=== PATIENT | male | born 1975 | race Hispanic/Latino ===

== ENCOUNTER 2024-06-03 17:42 | Observation (INO) | payer SELFPAY ==
[~2024-06-03] VITALS: Ht 167.6 cm; Wt 111.1 kg
[2024-06-03 18:19] VITALS: PULSE 67; RESP 15; TEMP 98.4
[2024-06-03 21:00] VITALS: BP 148/87; PULSE 78; RESP 18; TEMP 97.4; O2SAT 100
[2024-06-03] MEDS: AZITHROMYCIN 250 MG TAB PO ONE (21:03)
[2024-06-03 22:41] VITALS: BP 148/87; PULSE 78; RESP 18; TEMP 97.5; O2SAT 100
[2024-06-03] MEDS: Morphine 2mg Syringe 2 MG/ML SYR IV PRN (22:59)
[2024-06-03] MEDS: ONDANSETRON HCL INJ 2MG/ML 2ML 2 MG/ML VIAL IV PRN (22:59)
[2024-06-03 23:51] VITALS: BP 148/87; PULSE 78; RESP 18; TEMP 97.4; O2SAT 100
[2024-06-04] VITALS (8 sets, daily range): BP systolic 110–132; BP diastolic 64–82; PULSE 54–61; RESP 16–18; TEMP 97.3–98.5; O2SAT 98–100
[2024-06-04 07:05] LABS: BASOPHILS # (AUTO) 0.2 (0.0-0.1); BASOPHILS % 1.5 % (0.0-1.0); EOSINOPHILS # (AUTO) 0.7 (0.0-0.4); EOSINOPHILS % 7.1 % (0.0-6.0); HEMATOCRIT 49.1 % (38.2-49.6); HEMOGLOBIN 16.1 g/dL (14.0-18.0); LYMPHOCYTES # (AUTO) 2.6 (1.0-3.2); LYMPHOCYTES % 26.6 % (18.0-39.1); MEAN CORPUSCULAR HEMOGLOBIN 30.7 pg (28-32); MEAN CORPUSCULAR HGB CONC 32.8 g/dL (31-35); MEAN CORPUSCULAR VOLUME 93.5 fL (81-99); MONOCYTES # (AUTO) 0.8 (0.2-0.8); NEUTROPHILS # (AUTO) 5.5 (2.1-6.9); NEUTROPHILS % 56.1 % (38.7-80.0); PLATELET COUNT 275 x10e3/uL (140-360); RED BLOOD COUNT 5.25 x10e6/uL (4.3-5.7); RED CELL DISTRIBUTION WIDTH 13.6 % (11.7-14.4); WHITE BLOOD COUNT 9.88 x10e3/uL (4.8-10.8)
[2024-06-04 07:24] LABS: ANION GAP 13.1 mmol/L (8-16); CALCIUM 9.1 mg/dL (8.4-10.2); CREATININE, SERUM 0.98 mg/dL (0.72-1.25); POTASSIUM 4.1 mmol/L (3.5-5.1)
[2024-06-04] MEDS: SODIUM CHLORIDE 0.9% 1000ML 1,000 ML IV SCH (09:34)
[2024-06-05] MEDS: ACETAMINOPHEN/CODEINE 300MG - 30MG TAB PO PRN (00:20)
[2024-06-05] MEDS: POLYETHYLENE GLYCOL 3350 17 GM PACK PO STA (01:33)
[2024-06-05] MEDS: HYDROCORTISONE ACETATE 25 MG/SUPP.RECT SUPP RC STA ×2 (01:45)
[2024-06-05 04:00] VITALS: BP 124/62; PULSE 88; RESP 12; TEMP 97.9; O2SAT 100
[2024-06-05 05:28] LABS: BASOPHILS # (AUTO) 0.1 (0.0-0.1); BASOPHILS % 1.2 % (0.0-1.0); EOSINOPHILS # (AUTO) 0.7 (0.0-0.4); EOSINOPHILS % 6.8 % (0.0-6.0); HEMATOCRIT 46.7 % (38.2-49.6); HEMOGLOBIN 15.2 g/dL (14.0-18.0); LYMPHOCYTES # (AUTO) 2.9 (1.0-3.2); LYMPHOCYTES % 30.1 % (18.0-39.1); MEAN CORPUSCULAR HEMOGLOBIN 30.4 pg (28-32); MEAN CORPUSCULAR HGB CONC 32.5 g/dL (31-35); MEAN CORPUSCULAR VOLUME 93.4 fL (81-99); MONOCYTES # (AUTO) 0.8 (0.2-0.8); MONOCYTES % 7.9 % (4.4-11.3); NEUTROPHILS # (AUTO) 5.2 (2.1-6.9); NEUTROPHILS % 53.3 % (38.7-80.0); PLATELET COUNT 257 x10e3/uL (140-360); RED CELL DISTRIBUTION WIDTH 13.8 % (11.7-14.4); WHITE BLOOD COUNT 9.76 x10e3/uL (4.8-10.8)
[2024-06-05 05:59] LABS: ANION GAP 11.1 mmol/L (8-16); CALCIUM 8.8 mg/dL (8.4-10.2); CREATININE, SERUM 0.91 mg/dL (0.72-1.25); POTASSIUM 4.1 mmol/L (3.5-5.1)
[2024-06-05 08:16] VITALS: BP 116/78; PULSE 53; RESP 18; TEMP 97.9; O2SAT 100
[2024-06-05] MEDS: POLYETHYLENE GLYCOL 3350 17 GM PACK PO SCH (08:17)
[2024-06-05] MEDS: HYDROCORTISONE ACETATE 25 MG/SUPP.RECT SUPP RC SCH (08:19)
[2024-06-05 08:45] VITALS: BP 116/78; PULSE 53; RESP 18; TEMP 97.9; O2SAT 100
[2024-06-05] MEDS ORDERED: CIPRO500 MG PO (11:21)
[2024-06-05] MEDS ORDERED: FLAGYL375 MG PO (11:22)
[2024-06-05] MEDS ORDERED: MIRALAX17 GM PO ×2 (11:23)
[2024-06-05] MEDS ORDERED: SENOKOT-S TABL1 EACH PO (11:23)
[2024-06-05] MEDS ORDERED: [UNRECOGNIZED DRUG - OTHER] RC (11:31)
== END 2024-06-05 11:57 | disposition home or self-care (01) ==
LOC: FSED 18:04 → ERHOLD 20:21 → MED/SURG2 22:29
PROVIDERS: ADMIT Internal Medicine; ATTEND Internal Medicine
DX: K62.89 Other specified diseases of anus and rectum (principal); K62.5 Hemorrhage of anus and rectum; K59.00 Constipation, unspecified; I10 Essential (primary) hypertension; E78.5 Hyperlipidemia, unspecified; K57.30 Diverticulosis of large intestine without perforation or abscess without bleeding; K76.0 Fatty (change of) liver, not elsewhere classified; D17.79 Benign lipomatous neoplasm of other sites; K42.9 Umbilical hernia without obstruction or gangrene; Z79.899 Other long term (current) drug therapy
CPT/HCPCS: 36415 ×2; 74177; 80048 ×2; 80053; 84443; 85025 ×3; 85610; 99252; 99284; G0378 ×3; J2270 ×3; J2405; J2543 ×3; J7030 ×2